=== PATIENT | male | born 1990 | race Hispanic/Latino ===

== ENCOUNTER 2024-09-21 12:42 | Emergency (ER) | payer OTHER ==
[2024-09-21 13:24] LABS: Absolute Basophils 0.1 K/uL (0-0.5); Absolute Eosinophils 0.1 K/uL (0-0.5); Absolute Lymphocytes (CBC) 2.3 K/uL (0.7-4.9); Absolute Monocytes 0.5 K/uL (0.1-1.3); Absolute Neutrophil 5.5 K/uL (1.8-8.0); Basophils % 0.8 % (0-1.3); Eosinophils % 1.5 % (0-4.4); Hematocrit 37.1 % (39.6-49.0); Hemoglobin 12.5 g/dL (13.6-17.9); MCH 30.1 pg (27.0-35.0); MCHC 33.8 g/dL (32.0-36.0); MCV 89.1 fL (80-100); MPV 8.3 fL (7.6-11.3); Monocytes % 5.7 % (3.3-12.3); Nucleated Red Blood Cells % 0.1 % (0-0); Platelets 237 thou/uL (152-406); RBC Red Blood Cell Count 4.17 M/uL (4.33-5.43); Red Cell Distribution Width 14.5 % (12.1-15.2)
[2024-09-21 13:33] LABS: PT Prothrombin Time 10.7 SECONDS (10.0-13.0); PTT, Activated Partial Thromb 27.9 SECONDS (24.3-36.9); Protime INR 0.94
[2024-09-21 13:44] LABS: ALT/SGPT 19 U/L (16-61); AST/SGOT 17 U/L (15-37); Albumin 3.3 g/dL (3.4-5.0); Albumin/Globulin Ratio 1.1 (1.1-1.8); Alkaline Phosphatase 57 U/L (45-117); Anion Gap 7.8 mEq/L (5.0-15.0); BUN Blood Urea Nitrogen 23 mg/dL (7-18); Bicarbonate 25 mEq/L (21-32); Bilirubin Total 0.4 mg/dL (0.2-1.0); Glomerular Filtration Rate 124 ml/min (=/>90); Glucose Level 92 mg/dL (74-106); Potassium 3.8 mEq/L (3.5-5.1); Protein, Total 6.3 g/dL (6.4-8.2); Sodium Level 137 mEq/L (136-145)
[2024-09-21 13:45] LABS: Bilirubin Direct < 0.2 mg/dL (0-0.2); Bilirubin Indirect, Calculated 0.2 mg/dL (0.2-0.8)
[2024-09-21 15:04] LABS: Barbiturates NEGATIVE (NEGATIVE); Benzodiazepines NEGATIVE (NEGATIVE); Cocaine NEGATIVE (NEGATIVE); METHAMPHETAM NEGATIVE (NEGATIVE); Methadone NEGATIVE (NEGATIVE); Opiates NEGATIVE (NEGATIVE); Phencyclidine NEGATIVE (NEGATIVE); THC Cannibis NEGATIVE (NEGATIVE)
--- NOTE | 2024-09-21 15:16 | EDPHYS ---
Physician Documentation [facility] Name: Jaspal Berry Age: 34 yrs Sex: Male : 1990 Arrival Date: 09/21/2024 Time: 12:42 Bed 11 Private MD: ED Physician Sae Lundberg HPI: 09/21 15:01 This 34 yrs old Male presents to ER via EMS with complaints of Drug Abuse. ms3 15:01 34-year-old male with no past medical history presents to the emergency department via [address] [facility] for syncopal episode that occurred while in long term. Per EMS present [place] found patient unresponsive for approximately 1 minute at 11 AM. Patient smoked something prior to having loss of consciousness.. Historical: - Allergies: 12:55 No Known Allergies; ph - PMHx: 12:55 None; ph - Immunization history:: Adult Immunizations up to date. - Infectious Disease History:: Denies. - Social history:: Smoking status: Patient reports the use of cigarette tobacco products. ROS: 15:01 Constitutional: Negative for fever, and chills. Cardiovascular: Negative for chest ms3 pain, and palpitations. Respiratory: Negative for shortness of breath, cough, wheezing, and pleuritic chest pain, Abdomen/GI: Negative for abdominal pain, nausea, vomiting, diarrhea, and constipation, MS/Extremity: Negative for injury and deformity, Skin: Negative for injury, rash, and discoloration, 15:01 Neuro: Positive for syncope, Exam: 15:01 Constitutional: This is a well developed, well nourished patient who is awake, alert, ms3 and in no acute distress. Cardiovascular: Regular rate and rhythm with a normal S1 and S2. No gallops, murmurs, or rubs. Normal PMI, no JVD. No pulse deficits. Respiratory: Lungs have equal breath sounds bilaterally, clear to auscultation and percussion. No rales, rhonchi or wheezes noted. No increased work of breathing, no retractions or nasal flaring. Abdomen/GI: Soft, non-tender, with normal bowel sounds. No distension or tympany. No guarding or rebound. No evidence of tenderness throughout. Skin: Warm, dry with normal turgor. Normal color with no rashes, no lesions, and no evidence of cellulitis. MS/ Extremity: Pulses equal, no cyanosis. Neurovascular intact. Full, normal range of motion. Neuro: Awake and alert, GCS 15, oriented to person, place, time, and situation. Cranial nerves II-XII grossly intact. Motor strength 5/5 in all extremities. Sensory grossly intact. Cerebellar exam normal. Normal gait. 15:27 ECG was reviewed by the Attending Physician. ms3 Vital Signs: 12:52 BP 109 / 70; Pulse 62; Resp 18; Temp 98.1; Pulse Ox 100% on R/A; Weight 90.72 kg; ph Height 6 ft. 0 in. ; 14:03 BP 119 / 75; Pulse 78; Resp 16; Pulse Ox 100% ; bp 15:54 BP 134 / 85; Pulse 74; Resp 16; Pulse Ox 100% on R/A; jb4 12:52 Body Mass Index 27.12 (90.72 kg, 182.88 cm) ph MDM: 12:53 Medical Screening Exam initiated ms3 15:01 Differential Diagnosis: cardiac arrhythmia, drug effect, vasovagal episode. Data ms3 reviewed: vital signs, nurses notes, lab test result(s), and as a result, I will discharge patient. Counseling: I had a detailed discussion with the patient and/or guardian regarding the historical points, exam findings, and any diagnostic results supporting the discharge/admit diagnosis, lab results, the need for outpatient follow up, to return to the emergency department if symptoms worsen or persist or if there are any questions or concerns that arise at home. Special discussion: I discussed with the patient/guardian in detail that at this point there is no indication for admission to the hospital. It is understood, however, that if the symptoms persist or worsen the patient needs to return immediately for re-evaluation. ED course: . 09/21 13:01 Order name: Acetaminophen; Complete Time: 13:51 ms3 09/21 13:01 Order name: BMP; Complete Time: 13:51 ms3 09/21 13:01 Order name: CBC with Diff; Complete Time: 13:51 ms3 09/21 13:01 Order name: Ethanol; Complete Time: 13:51 ms3 09/21 13:01 Order name: Hepatic Function; Complete Time: 13:51 ms3 09/21 13:01 Order name: Protime (+inr); Complete Time: 13:51 ms3 03/04 13:01 Order name: Ptt, Activated; Complete Time: 13:51 ms3 09/21 13:01 Order name: Salicylate; Complete Time: 13:51 ms3 09/21 13:01 Order name: Urine Drug Screen; Complete Time: 15:09 ms3 09/21 13:01 Order name: EKG - Nurse/Tech; Complete Time: 14:02 ms3 09/21 13:01 Order name: IV Saline Lock; Complete Time: 13:15 ms3 09/21 13:01 Order name: Labs collected and sent; Complete Time: 13:15 ms3 09/21 13:01 Order name: O2 Per Protocol; Complete Time: 13:15 ms3 09/21 13:01 Order name: O2 Sat Monitoring; Complete Time: 13:15 ms3 09/21 14:47 Order name: EKG - Nurse/Tech; Complete Time: 14:47 ss EC:27 Rate is 73 beats/min. Rhythm is regular. QRS [place] is Normal. NH interval is normal. ms3 Clinical impression: Normal ECG. Interpreted by me. Reviewed by me. Administered Medications: No medications were administered Disposition Summary: 09/21/24 15:14 Discharge Ordered Notes: Location: Home ms3 Condition: Stable ms3 Diagnosis - Syncope ms3 - Anemia, unspecified ms3 Followup: ms3 - With: Private Physician - When: 2 - 3 days - Reason: Recheck today's complaints Discharge Instructions: - Discharge Summary Sheet ms3 - Syncope ms3 Forms: - Medication Reconciliation Form ms3 - Antibiotic Education ms3 - Prescription Opioid Use ms3 - Patient Portal Instructions ms3 - Leadership Thank You Letter ms3 Signatures: Dispatcher [employer] EDUzma Garrido, RN RN Hannah Vergara RN RN Sae Lundberg DO DO ms3 Corrections: (The following items were deleted from the chart) 13:01 13:01 Suicide Screening ([place]) ordered. ms3 ms3 13: 13:01 ACETAMINOPHEN+C.LAB.BRZ ordered. EDMS EDMS 13:01 13:01 BASIC METABOLIC PANEL+C.LAB.BRZ ordered. EDMS EDMS 13: 13:01 CBC+H.LAB.BRZ ordered. EDMS EDMS 13: 13:01 ETHANOL+C.LAB.BRZ ordered. EDMS EDMS 13:01 13:01 HEPATIC FUNCTION+C.LAB.BRZ ordered. EDMS EDMS 13: 13:01 PROTIME (+INR)+COAG.LAB.BRZ ordered. EDMS EDMS 13: 13:01 PTT, ACTIVATED+COAG.LAB.BRZ ordered. EDMS EDMS 13: 13:01 SALICYLATE+C.LAB.BRZ ordered. EDMS EDMS 13: 13:01 URINE DRUG SCREEN+UC.LAB.BRZ ordered. EDMS EDMS
--- NOTE | 2024-09-21 15:16 | ER ---
Nurse's Notes [facility] Name: Jaspal Berry Age: 34 yrs Sex: Male : 1990 Arrival Date: 09/21/2024 Time: 12:42 Bed 11 Private MD: Diagnosis: Syncope;Anemia, unspecified Presentation: 09/21 12:52 Chief complaint: EMS states: Pt from [facility], was found unresponsive in cell ph for approx 1 minute, monitored in [facility] but decided to call EMS when BP dropped to 80s systolic, pt states that he "smoked a cigarette", IV established [employer] and fluids given, BP improved, pt drowsy but awakens easily. Coronavirus screen: Vaccine status: Patient reports receiving the 2nd dose of the covid vaccine. Ebola Screen: No symptoms or risks identified at this time. Initial Sepsis Screen: Does the patient meet any 2 criteria? No. Patient's initial sepsis screen is negative. Does the patient have a suspected source of infection? No. Patient's initial sepsis screen is negative. Risk Assessment: Do you want to hurt yourself or someone else? Patient reports no desire to harm self or others. Onset of symptoms was September 21, 2024. 12:52 Method Of Arrival: EMS: [facility] 12:52 Acuity: BART 3 ph Triage Assessment: 12:56 General: Appears in no apparent distress. Behavior is cooperative, drowsy. Pain: Denies ph pain. Neuro: Level of Consciousness is awake, obeys commands, lethargic. Cardiovascular: Capillary refill < 3 seconds in bilateral fingers Patient's skin is warm and dry. Respiratory: Airway is patent Respiratory effort is even, unlabored. GI: No signs and/or symptoms were reported involving the gastrointestinal system. Derm: Skin is pink, warm \\T\\ dry. Historical: - Allergies: 12:55 No Known Allergies; ph - PMHx: 12:55 None; ph - Immunization history:: Adult Immunizations up to date. - Infectious Disease History:: Denies. - Social history:: Smoking status: Patient reports the use of cigarette tobacco products. Screenin:54 [facility] ED Fall Risk Assessment (Adult) History of falling in the last 3 months, jb4 including since admission No falls in past 3 months (0 pts) Confusion or Disorientation No (0 pts) Intoxicated or Sedated No (0 pts) Impaired Gait No (0 pts) Mobility Assist Device Used No (0 pt) Altered Elimination No (0 pt) Score/Fall Risk Level 0 - 2 = Low Risk Oriented to surroundings, Maintained a safe environment. Abuse screen: Denies threats or abuse. Nutritional screening: No deficits noted. Tuberculosis screening: No symptoms or risk factors identified. Assessment: 13:00 General: Appears in no apparent distress. Behavior is agitated, anxious. bp 14:03 Reassessment: Patient appears in no apparent distress at this time. Patient is alert, bp oriented x 3, equal unlabored respirations, skin warm/dry/pink. 15:09 Reassessment: Patient appears in no apparent distress at this time. Patient and/or jb4 family updated on plan of care and expected duration. Pain level reassessed. Patient is alert, oriented x 3, equal unlabored respirations, skin warm/dry/pink. guards remain at the bedside. 15:54 Reassessment: Patient appears in no apparent distress at this time. Patient and/or jb4 family updated on plan of care and expected duration. Pain level reassessed. Patient is alert, oriented x 3, equal unlabored respirations, skin warm/dry/pink. Vital Signs: 12:52 BP 109 / 70; Pulse 62; Resp 18; Temp 98.1; Pulse Ox 100% on R/A; Weight 90.72 kg; ph Height 6 ft. 0 in. ; 14:03 BP 119 / 75; Pulse 78; Resp 16; Pulse Ox 100% ; bp 15:54 BP 134 / 85; Pulse 74; Resp 16; Pulse Ox 100% on R/A; jb4 12:52 Body Mass Index 27.12 (90.72 kg, 182.88 cm) ph ED Course: 12:52 Patient arrived in ED. ph 12:53 Sae Lundberg DO is Attending Physician. ms3 12:55 Triage completed. ph 12:56 Arm band placed on Patient placed in an exam room, on a stretcher. ph 13:02 Cory Cintron, ALMA DELIA is Primary Nurse. bp 13:15 Maintain EMS IV. Dressing intact. Good blood return noted. Site clean \\T\\ dry. Gauge \\T\\ bp site: 20 RAC. Flushed with 10 mL NS. 15:54 Patient has correct armband on for positive identification. Bed in low position. Call jb4 light in reach. Side rails up X 1. Provided Education on: discharge instructions.. 15:54 No provider procedures requiring assistance completed. IV discontinued, intact, jb4 bleeding controlled, No redness/swelling at site. Pressure dressing applied. Administered Medications: No medications were administered Medication: 15:54 VIS not applicable for this client. jb4 Outcome: 15:14 Discharge ordered by . ms3 15:54 Discharged to Law Enforcement jb4 15:54 Condition: stable 15:54 Discharge instructions given to patient, Instructed on discharge instructions, follow up and referral plans. Demonstrated understanding of instructions, follow-up care, 15:55 Patient left the ED. jb4 Signatures: Hannah Vergara RN RN ph Mike Vera RN RN jb4 Cory Cintron RN RN Sae Gallegos DO DO ms3 Corrections: (The following items were deleted from the chart) 12:59 12:52 Acuity: BART 2 ph ph
[2024-09-21 16:01] VITALS: TEMP 98.1; O2SAT 100
[2024-09-21 16:03] VITALS: BP 134/85
--- NOTE | 2024-09-22 11:05 | EKG ---
Test Date: 2024-09-21 Test Time: 14:40:06 Trim Setter: PHAN MEASUREMENT RESULTS: Intervals: Rate: 73 IL: 148 QRSD: 104 QT: 350 QTc: 385 [place]: P: 70 IL: 148 QRS: -28 T: 49 INTERPRETIVE STATEMENTS: Normal sinus rhythm Incomplete right bundle branch block Borderline ECG No previous ECG available for comparison Electronically Signed On 09-22-24 11:03:05 CHILD HEALTH ASSOCIATE by Kit Egan
--- NOTE | 2024-09-22 11:05 | EKG ---
Test Date: 2024-09-21 Test Time: 13:54:17 Quality Compliance Coordinator: BP MEASUREMENT RESULTS: Intervals: Rate: 72 MA: 146 QRSD: 100 QT: 346 QTc: 378 [place]: P: 71 MA: 146 QRS: 0 T: 19 INTERPRETIVE STATEMENTS: Normal sinus rhythm with sinus arrhythmia ST elevation, consider lateral injury or acute infarct ACUTE AL Abnormal ECG No previous ECG available for comparison Electronically Signed On 09-22-24 11:03:41 FLAT CLOTHIER by Kit Egan
== END 2024-09-21 15:55 | disposition home or self-care (01) ==
LOC: ER 12:42
DX: D64.9 Anemia, unspecified (principal); Z72.0 Tobacco use
CPT/HCPCS: 36415; 80048; 80076; 80143; 80179; 80307; 82077; 85025; 85610; 85730; 93005